=== PATIENT | male | born 1985 | race Caucasian/White ===

== ENCOUNTER 2017-04-19 21:20 | Emergency (ER) | payer OTHER ==
[~2017-04-19 21:20] MED LIST: ALLERGY10 M2 PO; HYDROCHLOROTHIA25 MG PO; PREDNISONE5 MG PO; TERBINAFINE250 MG PO
[2017-04-19 22:41] VITALS: BP 146/85
== END 2017-04-19 22:40 | disposition home or self-care (01) ==
LOC: ED 21:20
DX: I16.0 Hypertensive urgency (principal); M25.561 Pain in right knee

== ENCOUNTER 2017-12-20 18:03 | Emergency (ER) | payer SELFPAY ==
[~2017-12-20] VITALS: Ht 177.8 cm; Wt 108.2 kg
[2017-12-20 19:27] VITALS: Ht 177.8 cm; Wt 108.2 kg
[2017-12-20 21:33] VITALS: BP 143/96
== END 2017-12-20 21:34 | disposition home or self-care (01) ==
LOC: ED 18:03
DX: M54.42 Lumbago with sciatica, left side (principal); I10 Essential (primary) hypertension
CPT/HCPCS: J1885